=== PATIENT | female | born 1985 | race Caucasian/White ===

== ENCOUNTER → 2016-10-05 | Outpatient (CLI) | payer BC, OTHER ==
[~2016-10-05] VITALS: Ht 162.6 cm; Wt 70.5 kg
[~2016-10-05] MED LIST: ACET-1651 PO; ASPI-483 PO; CALC-652 PO; D5LR 1,000 ML IV SCH; DimenhyDRINATE 50 MG in LR 1,000 ML IV SCH; ONDANSETRON 4mg/2ml INJECTION IV PRN; P-EP-570 PO; PREN-92 PO
[2016-10-05 12:34] VITALS: Ht 162.6 cm; Wt 70.5 kg
[2016-10-05 12:34] LABS: BASOPHILS % (AUTO) 0.1 % (0-2); EOSINOPHILS # (AUTO) 0.1 T/MM3 (0-0.5); EOSINOPHILS % (AUTO) 0.5 % (0-4); HCT - HEMATOCRIT 35.5 % (36-46); HGB - HEMOGLOBIN 12.2 GM/DL (12-16); IMMATURE GRANULOCYTE # (AUTO) 0.04 T/MM3 (0.00-0.03); IMMATURE GRANULOCYTE % (AUTO) 0.4 % (0.0-0.5); LYMPHOCYTES # (AUTO) 1.1 T/MM3 (1-4.8); LYMPHOCYTES % (AUTO) 10.2 % (23-45); MEAN CORPUSCULAR HGB 32.7 UUG (26-34); MEAN CORPUSCULAR HGB CONC(MCHC 34.4 GM/DL (31-37); MEAN CORPUSCULAR VOLUME 95.2 UM3 (80-100); MEAN PLATELET VOLUME 10.9 UM3 (9.4-12.4); MONOCYTES # (AUTO) 0.5 T/MM3 (0-0.8); MONOCYTES % (AUTO) 4.8 % (0-9.0); NEUTROPHILS #(AUTO)-ABSOLUTE 8.7 T/MM3 (1.8-7.7); RED BLOOD COUNT 3.73 M/MM3 (4.00-5.20); WBC - WHITE BLOOD COUNT 10.4 T/MM3 (4.5-11.0)
[2016-10-05 12:39] VITALS: BP 105/63; PULSE 68; RESP 16; TEMP 98.1; O2SAT 100
[2016-10-05 12:49] LABS: ALBUMIN 3.4 G/DL (3.5-5.0); ALBUMIN/GLOBULIN RATIO 1.2 RATIO (1.1-2.2); ALKALINE PHOSPHATASE 79 U/L (38-126); ALT (SGPT) 33 U/L (9-52); ANION GAP 7 MEQ/L (5-15); AST (SGOT) 28 U/L (14-36); BUN/CREATININE RATIO 18 RATIO (6-26); CHLORIDE 110 MEQ/L (98-107); CO2 - CARBON DIOXIDE 22 MEQ/L (22-30); CREATININE 0.5 MG/DL (0.7-1.2); GLOMERULAR FILTRATION RATE 143; GLUCOSE 79 MG/DL (65-110); SODIUM 139 MEQ/L (134-144); TOTAL PROTEIN 6.3 G/DL (6.3-8.2)
== END ==
LOC: INF.THER 11:50
PROVIDERS: ATTEND Nurse Practitioner Obstetrics & Gynecology
DX: O21.1 Hyperemesis gravidarum with metabolic disturbance (principal)
CPT/HCPCS: 80053; 85025; 87486; 87581; 87633; 87798; J1240; J7120; J7121

== ENCOUNTER 2016-12-07 09:16 | Inpatient (IN) | payer BC ==
[~2016-12-07] VITALS: Ht 162.6 cm; Wt 73.9 kg
[~2016-12-07 09:16] MED LIST changes: -D5LR 1,000 ML IV SCH; -DimenhyDRINATE 50 MG in LR 1,000 ML IV SCH; -ONDANSETRON 4mg/2ml INJECTION IV PRN
[2016-12-07] MEDS ORDERED: ACETAMINOPHEN 500 MG TABLET PO PRN ×2 (09:45→14:45)
[2016-12-07] MEDS ORDERED: CALCIUM CARBONATE 500mg Chewable TAB PO PRN ×2 (09:45→14:45)
[2016-12-07] MEDS ORDERED: MAG-AL + SIM LIQUID 30 ML UDC PO PRN ×2 (09:45→14:45)
[2016-12-07] MEDS ORDERED: OXYTOCIN 30 UNIT in D5LR 500 ML SCH (09:45)
[2016-12-07] MEDS ORDERED: LIDOCAINE 1% (10mg/ml) 2ml SDV ID PRN (09:45)
[2016-12-07] MEDS ORDERED: AMPICILLIN 2 G in NORMAL SALINE 100 ML IV ONE (10:00)
[2016-12-07] MEDS ORDERED: D5LR 1,000 ML IV PRN (10:00)
[2016-12-07] MEDS: LR 1,000 ML IV PRN ×2 (10:07→12:15)
[2016-12-07 10:11] LABS: HCT - HEMATOCRIT 37.6 % (36-46); HGB - HEMOGLOBIN 12.8 GM/DL (12-16); MEAN CORPUSCULAR HGB 32.6 UUG (26-34); MEAN CORPUSCULAR VOLUME 95.7 UM3 (80-100); MEAN PLATELET VOLUME 11.5 UM3 (9.4-12.4); RED BLOOD COUNT 3.93 M/MM3 (4.00-5.20); WBC - WHITE BLOOD COUNT 13.6 T/MM3 (4.5-11.0)
[2016-12-07 10:30] VITALS: BP 113/69; PULSE 75; RESP 16; TEMP 98.1; O2SAT 97
[2016-12-07] MEDS ORDERED: DOCU-168 PO (11:27)
--- NOTE | 2016-12-07 12:26 | ANESOB ---
Epidural/ Date/Time DATE: 12/07/16 TIME: 1150 Preop Diagnosis Procedure: Labor Epidural Plan: Epidural Height: 5 ' 4.00 " Weight: 73.900 kg BMI: kg/m2 P:3 Medications & Allergies Inpatient Medications Current Medications Medications (Trade) Dose Ordered Sig/Audrey Start Time Stop Time Status Last Admin Dose Admin Lidocaine HCl 0.2 mg 0.2 mg PRN PRN 12/07/16 09:45 Lactated Ringer's (Lactated Ringers) 1,000 ml @ 0 mls/hr Q0M PRN 12/07/16 09:41 12/07/16 12:15 0 MLS/HR Acetaminophen (Tylenol Extra Strength) 1-2 TABS = 500-1,000 MG Q4H PRN 12/07/16 09:45 Al Hydroxide/Mg Hydroxide (Maalox) 30 ml Q4H PRN 12/07/16 09:45 Calcium Carbonate 1-2 TABS Q2H PRN 12/07/16 09:45 Ampicillin Sodium 1 g/Sodium Chloride 100 ml @ 200 mls/hr Q4H 12/07/16 14:00 Dextrose/Lactated Ringer's 1,000 ml @ 0 mls/hr Q0M PRN 12/07/16 10:00 12/07/16 10:15 2 MLS/HR Oxytocin/Dextrose/ Lactated Ringer's (Pitocin/D5lr) 503 ml @ 0 mls/hr Q0M 12/07/16 09:45 12/07/16 10:12 0 MLS/HR Acetaminophen (Tylenol Extra Strength) 500 Mg Tablet, 500 MG PO PRN, (Reported) Last Taken: on 12/07/16 0700 Docusate Sodium (Colace) 100 Mg Capsule, 1 CAP PO DAILY, (Reported) Last Taken: on 12/07/16 0700 Vits W-Ca,Fe,Fa(<1MG) ( Vitamins) 1 Tab Tablet, 1 TAB PO DAILY, (Reported) Last Taken: on 12/06/16 1000 Coded Allergies: No Known Allergies (Verified , 10/05/16) Medical/Surgical History Anesthesia PMH: Reports: Asthma (ALLERGY INDUCED- no issues recently), Denies: *Diabetes, *Hypertension, *ID, Anesthesia Reactions, Bld Transfusion Reaction, CHF, COPD, Cancer, Glaucoma, Malignant Hyperthermia, Seizures Smoking Status: Never smoker Does patient use chewing tobac: No Second Hand Exposure: No Substance Use Type: does not use Alcohol Intake: none Anesthesia Adverse Reactions: FOUND none Family Hx of Anesthesia Advers: none Hx of Motion Sickness: No Complications During : No Pertinent Findings Laboratory Tests 12/07/16 10:05 Physical Exam Respiratory: Lungs clear Cardiovascular: Regular rate, rhythm Airway Assessment Mallampati Score: II TMD: 3 Fingerbreadths Neck Extension: Good Overall Assessment: May Be Diff Intubation ASA: 2 Discussion Discussed risks/options/alternatives of anesthesia. Patient consents. Nursing pain assessment noted. Present for Discussion: Present: Spouse Attestation Statement Prior to the delivery of any anesthetic medication, I examined the patient, developed the plan, obtained the patient's consent and discussed the risk and benefits of the procedure with the patient/guardian. If the note happens to be signed after anesthesia start time, it is only due to providing efficient care of the patient and documenting at a time when the computer is available. GLORIA DAHL CRNA December 07, 2016 12:26
[2016-12-07] MEDS ORDERED: DiphenhydrAMINE 50 MG/ML INJECTION IV PRN (12:45)
[2016-12-07] MEDS ORDERED: ONDANSETRON 4mg/2ml INJECTION IV PRN (12:45)
[2016-12-07] MEDS ORDERED: NALOXONE 0.4mg/ml INJECTION IV PRN (12:45)
[2016-12-07] MEDS ORDERED: ROPIVACAINE 1% 200 MG, SUFENTANIL 50 MCG in NORMAL SALINE 80 ML EPI PRN (12:45)
[2016-12-07] MEDS ORDERED: AMPICILLIN 1 G in NORMAL SALINE 100 ML IV SCH (14:00)
[2016-12-07] MEDS ORDERED: OXYTOCIN 30 UNIT in D5W 500 ML IV ONE (14:33)
[2016-12-07] MEDS ORDERED: OXYTOCIN 30 UNIT in D5LR 500 ML IV ONE (14:33)
[2016-12-07] MEDS ORDERED: PHENYLEPHRINE RECTAL SUPPOSITORY RECTALLY PRN (14:45)
[2016-12-07] MEDS ORDERED: HYDROCORTISONE 2.5% CREAM 30 GM RECTALLY PRN (14:45)
[2016-12-07] MEDS ORDERED: MILK OF MAGNESIA 30 ML SUSP PO PRN (14:45)
[2016-12-07] MEDS ORDERED: DiphenhydrAMINE 25 MG CAPSULE PO PRN (14:45)
[2016-12-07] MEDS: IBUPROFEN 800 MG TABLET PO PRN (16:19)
--- NOTE | 2016-12-07 17:50 | NUR ---
Epidural Epidural catheter removed without complications, tip intact, no S/S of infection noted. Area cleansed with alcohol, betadine and covered with a bandaid. Pt. educated about S/S of infection and to call doctor with concerns.
--- NOTE | 2016-12-07 18:00 | NUR ---
Progress Note Pt ambulated to bathroom with RN supervision and denied dizziness. Pt unable to void at this time. RN educated pt about pericare and skin care. Pt verbalized understanding and performed self pericare, this RN assisted with skin care. Pad and ice pack changed with benzo spray and tucks pads. Will continue to monitor per plan of care.
[2016-12-07 18:45] VITALS: BP 122/72; PULSE 81; RESP 18; TEMP 98.1; O2SAT 96
--- NOTE | 2016-12-07 18:48 | ANESPO ---
Post-Op Note Date 12/07/16 Time: 18:48 Status Pt Participated in Evaluation: Pt participated in person Vital Signs Date Time Temp Pulse Resp B/P Pulse Ox O2 Delivery O2 Flow Rate FiO2 12/07/16 10:30 98.1 75 16 113/69 97 Room Air Respiratory Function: Airway patent Cardiovascular Function: Regular pulse Mental Status: Alert/oriented Pain Level Intensity: 0 Hydration: Taking po fluids Complications during Recovery None apparent Follow-Up Instructions Instructions Per Surgeon GLORIA DAHL CRNA December 07, 2016 18:48
--- NOTE | 2016-12-07 19:01 | PNPDOC ---
MC Prog Note 12/07/16 no c/o rashi q&a-DAYA Hammonds MD December 07, 2016 19:01
--- NOTE | 2016-12-07 19:33 | LDNF ---
DATE OF DELIVERY: 12/07/2016 DIAGNOSES 1. 31-year-old white female G6, P3 at 37.4 weeks gestational age. 2. Pitocin induction for premature rupture of membranes. 3. Varicose veins. 4. GBS prophylaxis. 5. Epidural anesthesia. 6. Spontaneous vaginal delivery. 7. Nuchal cord x 1 - delivered through. 8. Male , Apgars, 3000 g (6 pounds 10 ounces) (Jamie Dobson). 9. First-degree perineal laceration - repaired. BRIEF DESCRIPTION This is a long-time patient of [facility] who called our office this morning reporting probable rupture of membranes at 2:00 a.m. She is known to be GBS-positive so she was asked to come immediately to Maternal/Child. Membrane rupture was confirmed and she was admitted and started on ampicillin for GBS prophylaxis. She was 2 cm dilated and not shaista so Pitocin was started and reached a maximum of 14 milliunits/min. She began getting quite uncomfortable and got an epidural block. After the block a Grullon catheter was inserted and she was completely dilated. We had a spontaneous vaginal delivery from the OA position. There was a tight nuchal cord that was delivered through. Cord was allowed to drain into the for about two minutes and then it was doubly clamped and cut and the infant's father cut the cord. The infant was initially placed on the mother's abdomen. The placenta delivered spontaneously and was intact. There was a very small first-degree laceration that was repaired using interrupted 3-0 chromic. At the time of dictation mother and infant are doing well. JERED
[2016-12-07] MEDS: HYDROCODONE/APAP 5 mg/325 mg TABLET PO PRN (20:57)
[2016-12-07 22:42] VITALS: BP 133/73; PULSE 72; RESP 18; TEMP 98.5; O2SAT 97
--- NOTE | 2016-12-08 02:21 | NUR ---
Chart Check 24 hour chart check completed
--- NOTE | 2016-12-08 02:21 | NUR ---
Shift Summary Pt's VS stable. Fundus firm and minimal lochia. Pt voiding w/o difficulty and tolerating po fluids and regular diet. IVSL. Pt performing cares for self and baby with help of at bedside. Pain controlled with po pain meds as ordered, Motrin and Savage. Pt up ad dorcas in room. Pt attentive to infant needs and bonding appropriately. Call fritz in reach. Will continue to monitor per plan of care.
[2016-12-08] MEDS: IBUPROFEN 800 MG TABLET PO PRN ×3 (02:43→23:24)
[2016-12-08] MEDS: HYDROCODONE/APAP 5 mg/325 mg TABLET PO PRN ×5 (02:55→23:25)
--- NOTE | 2016-12-08 03:00 | NUR ---
REPORT FROM Valente GRIDER RN, CARE ASSUMED.
[2016-12-08 06:00] VITALS: BP 124/72; PULSE 67; RESP 18; TEMP 98.3; O2SAT 98
[2016-12-08 06:36] LABS: HCT - HEMATOCRIT 35.9 % (36-46); HGB - HEMOGLOBIN 12.2 GM/DL (12-16); MEAN CORPUSCULAR HGB 32.3 UUG (26-34); MEAN PLATELET VOLUME 11.4 UM3 (9.4-12.4); RED BLOOD COUNT 3.78 M/MM3 (4.00-5.20); WBC - WHITE BLOOD COUNT 14.1 T/MM3 (4.5-11.0)
--- NOTE | 2016-12-08 07:59 | PNPDOC ---
MC Prog Note 12/08/16 vss af no c/o doing well continue routine care path q&a-krb DAYA GOMEZ MD December 08, 2016 07:59
[2016-12-08] MEDS: DOCUSATE CALCIUM 240 MG CAPSULE PO SCH (11:11)
[2016-12-08 15:37] VITALS: BP_SYST 118; BP_SYST 188; BP_DIAS 76; PULSE 73; RESP 17; TEMP 98; O2SAT 98
[2016-12-08 23:35] VITALS: BP 115/71; PULSE 75; RESP 18; TEMP 98.1; O2SAT 99
--- NOTE | 2016-12-09 02:13 | NUR ---
Shift Summary Pt providing cares for self and baby in room with help of . Pain controlled with PO medications. Vs stable and wnl. Voiding without difficulty. Tolerating regular diet. Ambulating in room and on unit. baby ad dorcas.
[2016-12-09] MEDS: IBUPROFEN 800 MG TABLET PO PRN (07:24)
[2016-12-09] MEDS: HYDROCODONE/APAP 5 mg/325 mg TABLET PO PRN (07:25)
[2016-12-09 07:28] VITALS: BP 121/75; PULSE 63; RESP 16; TEMP 97.7; O2SAT 98
[2016-12-09] MEDS: DOCUSATE CALCIUM 240 MG CAPSULE PO SCH (09:25)
--- NOTE | 2016-12-09 09:45 | PNPDOC ---
MC Prog Note 12/09/16 doing well ppd2 vss af dc instructions reviewed f/u 5-6 wks q&a DAYA GOMEZ MD December 09, 2016 09:45
[2016-12-09] MEDS ORDERED: HYDR-4246 PO (09:48)
[2016-12-09] MEDS ORDERED: IBUP-1547 PO (09:48)
--- NOTE | 2016-12-09 09:55 | NUR ---
CM THIS WORKER MET WITH PARENTS AT THIS TIME. ALSO PRESENT WAS A GRANDMOTHER. THIS WORKER INTRODUCED SELF AND ROLE OF CASE MANAGEMENT. PARENTS MADE AWARE OF CARDIOLOGY APPOINTMENT APPOINTMENT FOR 12/12/16 AT 7:[address] HAYES. QUESTIONS ANSWERED OF PARENTS. PARENTS ABLE TO MAKE THIS APPOINTMENT. THIS WORKER INQUIRED REGARDING ANY DISCHARGE NEEDS. PARENTS DENIED ANY NEEDS. HAVE GOOD FAMILY SUPPORT. THREE OTHER CHILDREN. ALL BABY ITEMS AT HOME.
[2016-12-09 11:00] VITALS: BP 147/85; PULSE 71; RESP 16; TEMP 96.8; O2SAT 100
== END 2016-12-09 12:32 | disposition home or self-care (01) | DRG 775 ==
LOC: OBOBS 09:16 → MC 09:16 → EDSTATUS 09:52 → MC 19:30
PROVIDERS: ADMIT Obstetrics & Gynecology; ATTEND Obstetrics & Gynecology
PROC: 10E0XZZ Delivery of Products of Conception, External Approach (ICD-10-PCS; principal; 2016-12-07)
PROC: 0HQ9XZZ Repair Perineum Skin, External Approach (ICD-10-PCS; 2016-12-07)
PROC: 3E033VJ Introduction of Other Hormone into Peripheral Vein, Percutaneous Approach (ICD-10-PCS; 2016-12-07)
DX: O42.02 Full-term premature rupture of membranes, onset of labor within 24 hours of rupture (principal); O70.0 First degree perineal laceration during delivery; O69.1XX0 Labor and delivery complicated by cord around neck, with compression, not applicable or unspecified; Z3A.37 37 weeks gestation of pregnancy; Z37.0 Single live birth
CPT/HCPCS: 36415; 84112; 85027